=== PATIENT | female | born 1960 | race Caucasian/White ===

== ENCOUNTER 2022-12-26 10:13 | Observation (INO) | payer MEDICAID, SELFPAY ==
[2022-12-26] VITALS (11 sets, daily range): BP systolic 102–135; BP diastolic 42–79; PULSE 84–111; RESP 13–20; TEMP 37–38.2; O2SAT 96–100; BMI 30.7; BMI 31.0
--- NOTE | ~2022-12-26 | CT_ITS ---
EXAMINATION: CTA chest PE protocol DATE: 12/26/2022 11:38 INDICATION: Left-sided chest pain TECHNIQUE: Computed tomography (CT) pulmonary angiogram of the chest was performed with 100 mL Omnipa que-350 intravenous contrast. Additional 3D reconstructions utilizing coronal maximum intensity proje ction (MIP) were performed. Automated exposure control and iterative reconstruction technique were em ployed. The dose-length product was 254.19 mGy-cm. COMPARISON: None FINDINGS: Excellent contrast opacification of the pulmonary arteries. There is however mild to moderate respira tory motion in the bilateral lower lung zones which decreases sensitivity in some of the smaller subs egmental pulmonary arteries. No definitive pulmonary embolism identified. A few subtle tiny contrast opacified vessels extending through a 5.5 x 4.0 x 4.0 cm masslike region of consolidation in the left lower lobe which is concerning for pneumonia. Very small dependently layering left pleural effusion. Mild discoid atelectasis in the bilateral lower lobes. No pulmonary edema or pneumothorax. Heart siz e is normal. Small amount of atherosclerotic coronary artery calcific location. No pericardial effusi on. Thoracic aorta is normal in caliber with no dissection. Mild likely reactive left hilar and media stinal lymphadenopathy. Sized upper abdomen is unremarkable. Mild thoracic spondylosis with chronic a ppearing mild anterior wedging at T6. IMPRESSION: 1. No pulmonary embolism. Sensitivity decreased in some of the smaller subsegmental pulmonary arterie s at the lung bases due to some respiratory motion. 2. 5.5 x 4.0 x 4.0 cm masslike region of consolidation the left lower lobe, most likely pneumonia how ever would recommend follow-up chest radiograph a few weeks following clinical improvement to documen t resolution. 3. Very small left pleural effusion. 4. Likely reactive mild left hilar and mediastinal lymphadenopathy. Reviewed, dictated and finalized at location A. IMPRESSION: 1. No pulmonary embolism. Sensitivity decreased in some of the smaller subsegme ntal pulmonary arteries at the lung bases due to some respiratory motion. 2. 5.5 x 4.0 x 4.0 cm masslike region of consolidation the left lower lobe, mos t likely pneumonia however would recommend follow-up chest radiograph a few wee ks following clinical improvement to document resolution. 3. Very small left pleural effusion. 4. Likely reactive mild left hilar and mediastinal lymphadenopathy.
--- NOTE | 2022-12-26 10:35 | ECG_ITS ---
Measurements Intervals [place] Rate: 105 P: 55 MA: 145 QRS: 32 QRSD: 83 T: 48 QT: 317 QTc: 419 Interpretive Statements SINUS TACHYCARDIA BORDERLINE ECG NO PREVIOUS ECG AVAILABLE FOR COMPARISON Electronically Signed On 12-26-2022 17:02:38 CDT by Darin Cosme M.D.
[2022-12-26 11:11] LABS: Basophils Absolute Auto 0.1 K/mm3 (0.0-0.1); Basophils Percent Auto 0.3 % (0.2-1.2); Eosinophils Percent Auto 0.2 % (0-4.4); Hematocrit 34.9 % (37.0-47.0); Hemoglobin 11.9 g/dL (12.0-15.0); Immature Granulocyte Absolute 0.17 K/mm3 (0.00-0.031); Immature Granulocyte Percent A 0.9 % (0-0.5); Lymphocytes Absolute Auto 1.43 K/mm3 (0.9-3.2); Lymphocytes Percent Auto 7.8 % (18.3-44.2); Mean Corpuscular HGB Conc 34.1 g/dl (32-36); Mean Corpuscular Hemoglobin 31.3 pg (26-34); Mean Corpuscular Volume 91.8 fl (80-100); Mean Platelet Volume 9.6 fl (7.4-10.4); Monocytes Absolute Auto 1.3 K/mm3 (0.1-0.6); Monocytes Percent Auto 7.2 % (2.6-8.5); Neutrophils Absolute Auto 15.3 K/mm3 (1.3-6.7); Neutrophils Percent Auto 83.6 % (45.5-73.1); Platelet Count Result 385 k/mm3 (150-375); Red Cell Distribution Width 12.9 % (11.5-14.5); White Blood Count 18.3 K/mm3 (4.5-10.0)
[2022-12-26 11:20] LABS: Alanine Aminotransferase 16 U/L (6-35); Albumin Level 4.2 g/dL (3.5-5.1); Alkaline Phosphatase 109 U/L (38-126); Anion Gap 9 mmol/L (8-16); Aspartate Amino Transferase 24 U/L (14-36); Bilirubin,Total 0.5 mg/dL (0.2-1.3); Blood Urea Nitrogen 15 mg/dL (7-17); Calcium 9.2 mg/dL (8.4-10.2); Carbon Dioxide 22 mmol/L (22-30); Chloride 104 mmol/L (98-107); Estimated Glomerular Filt Rate > 60; Glucose 105 mg/dL (65-110); Potassium 3.5 mmol/L (3.4-5.0); Sodium 135 mmol/L (137-145)
[2022-12-26] MEDS: MORPHINE SULFATE (*CRX) 4 MG/ML INJ IV PUSH ×2 (11:20→16:03)
--- NOTE | 2022-12-26 11:23 | PC.NURSE ---
pt taken to CT at this time
[2022-12-26 11:25] LABS: INR 1.1; Prothrombin Time 15.1 Seconds (11.1-14.7)
[2022-12-26 11:26] LABS: Partial Thromboplastin Time 29.9 SECONDS (22.3-36.8)
[2022-12-26 11:32] LABS: Troponin I < 0.012 ng/mL (0.000-0.034)
[2022-12-26 12:50] LABS: Lactic Acid Reflex 0.7 mmol/L (0.7-2.0)
--- NOTE | 2022-12-26 13:04 | ED.GENADULT ---
HPI - General Adult General Chief complaint: Chest Pain Stated complaint: left side pain Time Seen by Provider: 12/26/22 10:50 History of Present Illness HPI narrative: Patient is a 62-year-old female who presents ER with left-sided chest pain. Worsening over last 3 days. Worse with deep breath. No hemoptysis. Reports night sweats. No documented fever. No known sick contacts. No history of heart disease or PE. Related Data Home Medications Medication Instructions Recorded Confirmed [place] 3 Fish Oil 1 cap BYMOUTH DAILY 12/26/22 12/26/22 aripiprazole 5 mg tablet 5 mg PO DAILY 12/26/22 12/26/22 cyanocobalamin (vitamin B-12) 1,000 mcg IM MONTHLY 12/26/22 12/26/22 1,000 mcg/mL injection solution hydrochlorothiazide 12.5 mg tablet 12.5 mg PO DAILY 12/26/22 12/26/22 losartan 50 mg tablet 50 mg PO BID 12/26/22 12/26/22 propranolol 20 mg tablet 20 mg PO BID 12/26/22 12/26/22 simvastatin 20 mg tablet 20 mg PO HS 12/26/22 12/26/22 Allergies Allergy/AdvReac Type Severity Reaction Status Date / Time Sulfa (Sulfonamide Allergy Hives Verified 12/26/22 16:28 Antibiotics) topiramate AdvReac Hallucinati Verified 12/26/22 16:28 ng Review of Systems Review of Systems: All systems reviewed & are unremarkable except as noted in HPI and below Constitutional: Constitutional: Denies chills, Denies fatigue and Denies fever(s) Comments: Night sweats ENT: Denies nasal congestion and Denies sore throat Cardiovascular: Cardiovascular: Reports chest pain, Denies rapid heart rate and Denies radiating jaw, neck or arm pain Respiratory: Respiratory: Reports cough and Reports dyspnea Gastrointestinal: Gastrointestinal: Denies abdominal pain, Denies nausea and Denies vomiting [facility] Past Medical History Medical History (Updated 12/26/22 @ 19:43 by Goyo Patel MD) Anxiety Hyperlipidemia Hypertension Palpitations Surgical History Surgical History (Updated 12/26/22 @ 17:54 by Mercedes Leon PA-C) History of hysterectomy History of mandibular surgery Pair of under bite. Family History Family History Mother Asthma COPD (chronic obstructive pulmonary disease) Father Lung cancer Sibling Asthma COPD (chronic obstructive pulmonary disease) Social History Social History (Updated 12/26/22 @ 17:56 by Mercedes Leon PA-C) Social History: Surrogate medical decision maker: Juno Leavitt, spouse. Code status: Full code. Smoking status: Never smoker Alcohol intake: former Substance use: never Lack of Transportation: No Lack of Food: Never True Current Housing: I Have Housing Concerned About Future Housing: No Difficulty Paying Gas/Electric Bills: No Difficulty Paying for Meds: No Currently Unemployed: No Education: High School Diploma/GED Difficulty w/ Childcare or Family Care: No Spiritual care concerns: Yes (jew) Exam Narrative: GENERAL: Well-appearing, well-nourished, and in no acute distress. HEAD: Normocephalic, atraumatic. ENT: Mucous membranes moist. CHEST: Clear to auscultation. No respiratory distress. HEART: Tachycardic and regular. Normal peripheral pulses. ABDOMEN: Soft, nontender, nondistended. EXTREMITIES: Normal range of motion. No edema. SKIN: Warm, dry, no rash. NEURO: NAlert and oriented x3. PSYCH: Normal mood and affect. Course Course Emergency Course: Patient more comfortable after IV pain medication. Informed of imaging and lab results. Recommend observation for IV antibiotics given significant size of masslike pneumonia and elevated white blood cell count. Patient verbalized understanding of this. Excepted by hospitalist. Vital Signs Vital signs: Vital Signs Temperature 98.6 F 12/26/22 10:31 Pulse Rate 111 H 12/26/22 10:31 Respiratory Rate 20 12/26/22 10:31 Blood Pressure 131/79 12/26/22 10:31 Pulse Oximetry 100 12/26/22 10:31 Oxy
[2022-12-26] MEDS: AZITHROMYCIN 500 MG/NS 250 ML 500 MG/250 ML BAG 250 MG IVPB (14:19)
[2022-12-26 14:25] LABS: Troponin I < 0.012 ng/mL (0.000-0.034)
[2022-12-26 15:20] LABS: Influenza A QL RT-PCR Negative (Negative); Influenza B QL RT-PCR Negative (Negative); SARS-CoV-2 RNA PCR Negative (Negative)
[2022-12-26] MEDS: ACETAMINOPHEN 325 MG TABLET 650 MG PO (16:02)
--- NOTE | 2022-12-26 16:17 | ADMGEN ---
This patient, Eugenia Leavitt, was admitted to [facility] Surg Room 312-01. Patient/family oriented to hospital policies and general routines including ID bracelet, bed and alarms, visiting hours, pain management, procedures, bathroom and other care routines, personal items, smoking policy, room service/diet, and visiting hours. Information on how to activate the Rapid Response Team has been discussed. Patient/Family are encouraged to report perceived risks to care and to ask questions if they do not understand what they are told or what they should do. Report from Elza in ER.
[2022-12-26 17:31] LABS: Troponin I < 0.012 ng/mL (0.000-0.034)
--- NOTE | 2022-12-26 17:52 | PM.IMHP ---
H&P: HPI History of Present Illness Date/Time: 12/26/22 15:30 Chief Complaint: Left chest pain and shortness of breath. Narrative: This is a pleasant 62-year-old female with hypertension, hyperlipidemia, palpitations, and anxiety who presented to the emergency department via vehicle for evaluation of left chest pain shortness a breath. The patient provides the following history. She is from [place] and traveled to the area 2 weeks ago to help her brother pack for an upcoming move. The last couple of days she started to feel poorly with fatigue, nonproductive cough, cold chills, sweats, and decreased appetite. Yesterday she started to feel short of breath and reports left-sided chest pain radiating through to the back. She denies headache, sore throat, exertional chest pain, vomiting, and diarrhea. She denies sick contacts. In the ED: She had a low-grade temperature in the ED up to 100.7? F. Blood pressures have been stable since arrival. SpO2 has been in the upper 90s on room air. WBC count was 18.3 and the remainder of her labs were pretty unremarkable. Chest CTA showed no evidence of pulmonary embolism though sensitivity was a bit decreased due to respiratory motion. A 5.5 x 4.0 x 4.0 cm masslike region of consolidation was noted in the left lower lobe which is likely pneumonia. A small left pleural effusion and reactive mild left hilar and mediastinal adenopathy were also noted. She was given 500 mg IV Zithromax an and 1 g IV ceftriaxone and she is being admitted in this setting for further treatment of pneumonia. Review of Systems Review of Systems: Twelve systems were reviewed and are negative except for as per HPI. [facility]LY [facility] Past Medical History Medical History Anxiety Hyperlipidemia Hypertension Palpitations Surgical History Surgical History History of hysterectomy History of mandibular surgery Pair of under bite. Family History Family History Mother Asthma COPD (chronic obstructive pulmonary disease) Father Lung cancer Sibling Asthma COPD (chronic obstructive pulmonary disease) Social History Social History Social History: Surrogate medical decision maker: Juno Leavitt, spouse. Code status: Full code. Smoking status: Never smoker Alcohol intake: former Substance use: never Lack of Transportation: No Lack of Food: Never True Current Housing: I Have Housing Concerned About Future Housing: No Difficulty Paying Gas/Electric Bills: No Difficulty Paying for Meds: No Currently Unemployed: No Education: High School Diploma/GED Difficulty w/ Childcare or Family Care: No Spiritual care concerns: Yes (samaritan) Meds Home Medications and Allergies Home Medications Medication Instructions Recorded Confirmed Type [place] 3 Fish Oil 1 cap BYMOUTH DAILY 12/26/22 12/26/22 History aripiprazole 5 mg tablet 5 mg PO DAILY 12/26/22 12/26/22 History cyanocobalamin (vitamin B-12) 1,000 mcg IM MONTHLY 12/26/22 12/26/22 History 1,000 mcg/mL injection solution hydrochlorothiazide 12.5 mg tablet 12.5 mg PO DAILY 12/26/22 12/26/22 History losartan 50 mg tablet 50 mg PO BID 12/26/22 12/26/22 History propranolol 20 mg tablet 20 mg PO BID 12/26/22 12/26/22 History simvastatin 20 mg tablet 20 mg PO HS 12/26/22 12/26/22 History Allergies Allergy/AdvReac Type Severity Reaction Status Date / Time Sulfa (Sulfonamide Allergy Hives Verified 12/26/22 16:28 Antibiotics) topiramate AdvReac Hallucinati Verified 12/26/22 16:28 ng Vital Signs Vital Signs - 24 hr 12/26/22 10:31 12/26/22 10:50 12/26/22 11:02 Temperature 98.6 F Pulse Rate 111 H 95 93 Respiratory Rate 20 20 Blood Pressure 131/79 133/68 Pulse Oximetry 100 100 Oxygen Delivery Room A
[2022-12-26] MEDS: SIMVASTATIN 20 MG TABLET PO (20:58)
[2022-12-26] MEDS: LOSARTAN POTASSIUM 50 MG TABLET PO (20:58)
[2022-12-26] MEDS: HYDROcodone/acetaminophen (*CRX) 5-325 MG TABLET 1 TAB PO (20:58)
[2022-12-27] VITALS (9 sets, daily range): BP systolic 98–130; BP diastolic 40–53; PULSE 73–87; RESP 13–18; TEMP 35.8–37.4; O2SAT 93–98
[2022-12-27] MEDS: HYDROcodone/acetaminophen (*CRX) 5-325 MG TABLET 1 TAB PO ×6 (01:34→21:04)
[2022-12-27 07:09] LABS: Hematocrit 31.6 % (37.0-47.0); Hemoglobin 10.2 g/dL (12.0-15.0); Mean Corpuscular HGB Conc 32.3 g/dl (32-36); Mean Corpuscular Hemoglobin 29.8 pg (26-34); Mean Corpuscular Volume 92.4 fl (80-100); Mean Platelet Volume 9.4 fl (7.4-10.4); Platelet Count Result 355 k/mm3 (150-375); Red Blood Count 3.42 M/mm3 (4.2-5.4); Red Cell Distribution Width 12.9 % (11.5-14.5); White Blood Count 13.2 K/mm3 (4.5-10.0)
[2022-12-27 07:25] LABS: Anion Gap 7 mmol/L (8-16); Blood Urea Nitrogen 13 mg/dL (7-17); Calcium 8.9 mg/dL (8.4-10.2); Carbon Dioxide 24 mmol/L (22-30); Chloride 104 mmol/L (98-107); Estimated Glomerular Filt Rate > 60; Glucose 96 mg/dL (65-110); Magnesium 2.1 mg/dL (1.6-2.3); Potassium 3.7 mmol/L (3.4-5.0); Sodium 135 mmol/L (137-145)
[2022-12-27] MEDS: hydroCHLOROthiazide 12.5 MG CAPSULE PO (08:14)
[2022-12-27] MEDS: PROPRANOLOL HCL 20 MG TABLET PO ×2 (08:14→16:27)
[2022-12-27] MEDS: ENOXAPARIN 40 MG/0.4 ML SYRINGE SUB-Q (08:14)
[2022-12-27] MEDS: LOSARTAN POTASSIUM 50 MG TABLET PO ×2 (08:15→21:05)
[2022-12-27] MEDS: OMEGA 3 POLYUNSAT FATTY ACIDS 1 GM CAP BY MOUTH (08:15)
[2022-12-27] MEDS: ARIPiprazole 5 MG TABLET PO (08:15)
--- NOTE | 2022-12-27 10:17 | PM.IMPN ---
Progress Note: A&P Assessment and Plan (1) Pneumonia: Code(s): J18.9 - Pneumonia, unspecified organism Status: Acute Assessment and Plan: The patient presents with SOB and pleuritic CP. She had low grade fever and elevated WBC to 18K. lactic acid level normal. CTA chest showing no PE but with a 5.5 x 4.0 x 4.0 cm masslike region of consolidation left lower lobe BCx NGTD Started on azithromycin and ceftriaxone. WBC coming down. Clinically better. Urine Ag pending. May develop a parapneumonic effusion. Monitor for development of symptomos of empyema. Continue IV abx. Follow up on cultures. Bronchodilators available as needed. Add cornet. Check for MRSA (2) Sepsis: Code(s): A41.9 - Sepsis, unspecified organism Status: Acute Assessment and Plan: Sepsis present on admission with fever, elevated WBC and tachycardia. Related to PNA. As above (3) Hypertension: Code(s): I10 - Essential (primary) hypertension Status: Acute Assessment and Plan: Patient's blood pressure was reviewed on 12/27 Blood pressure remains well controlled. Will continue to monitor (4) Anxiety: Code(s): F41.9 - Anxiety disorder, unspecified Status: Acute Assessment and Plan: Mood stable. Continue current medications. (5) Palpitations: Code(s): R00.2 - Palpitations Status: Acute Assessment and Plan: stable. Continue propranolol (6) Hyperlipidemia: Code(s): E78.5 - Hyperlipidemia, unspecified Status: Acute Assessment and Plan: LFTs normal. Continue simvastatin Plan DVT prophylaxis - Lovenox Code status - full Subjective Date/time seen: 12/27/22 10:17 Interval history: 62yo female with anxiety, HLD and HTN here for left sided chest pain and SOB. Patient feels better today. No fever or chills overnight. Still has the left lower chest pain that radiates to the flank and back but this is improved. Pain is pleuritic. She has a dry cough. She is a lifelong nonsmoker. She was exposed to secondhand smoke. Exam Narrative: Tm 100.7 96.9 112/53 83 16 93% ra Gen - NARD Chest - decreased BS in left base with mild splinting. nml RR CV - RRR S1/S2 Abd - Soft, NT/ND, Positive BS Ext - No pedal edema Psych - Nml mood and affect Skin - Warm and dry Objective Data Vital Signs Vital Signs: Vital Signs - 24 hr 12/26/22 10:31 12/26/22 10:50 12/26/22 11:02 Temperature 98.6 F Pulse Rate 111 H 95 93 Respiratory Rate 20 20 Blood Pressure 131/79 133/68 Pulse Oximetry 100 100 Oxygen Delivery Room Air Room Air 12/26/22 11:02 12/26/22 11:02 12/26/22 14:19 Temperature Pulse Rate 94 91 Respiratory Rate 18 18 Blood Pressure 134/51 L 102/58 L Pulse Oximetry 98 99 100 Oxygen Delivery Room Air 12/26/22 14:18 12/26/22 16:02 12/26/22 16:00 Temperature 100.7 F H 100.7 F H Pulse Rate 87 89 Respiratory Rate 19 18 Blood Pressure 113/72 115/74 Pulse Oximetry 100 100 Oxygen Delivery 12/26/22 17:02 12/26/22 15:45 12/26/22 20:00 Temperature 99.5 F 98.7 F Pulse Rate 92 Respiratory Rate 13 Blood Pressure 135/45 L Pulse Oximetry 100 98 Oxygen Delivery Room Air 12/26/22 20:00 12/26/22 23:33 12/27/22 04:00 Temperature 98.6 F 97.3 F L Pulse Rate 92 84 85 Respiratory Rate 13 13 13 Blood Pressure 108/42 L 130/53 L Pulse Oximetry 98 96 95 Oxygen Delivery Room Air 12/27/22 08:14 12/27/22 08:00 12/27/22 09:11 Temperature 96.9 F L Pulse Rate 83 87 Respiratory Rate 16 Blood Pressure 112/53 L Pulse Oximetry 96 93 Oxygen Delivery Room Air 12/27/22 08:00 Temperature Pulse Rate Respiratory Rate Blood Pressure Pulse Oximetry 95 Oxygen Delivery Room Air Intake/Output Intake/Output: Intake & Output 12/24/22 12/25/22 12/26/22 12/27/22 23:59 23:59 23:59 23:59 Intake Total 500 990 Output Total 900 Balance 500 90
[2022-12-27] MEDS: AZITHROMYCIN 500 MG/NS 250 ML 500 MG/250 ML BAG 250 MG IVPB (13:37)
[2022-12-27] MEDS: SIMVASTATIN 20 MG TABLET PO (21:04)
[2022-12-28] VITALS (8 sets, daily range): BP systolic 105–133; BP diastolic 45–60; PULSE 72–83; RESP 14–19; TEMP 35.9–37.7; O2SAT 93–95
[2022-12-28] MEDS: HYDROcodone/acetaminophen (*CRX) 5-325 MG TABLET 1 TAB PO ×4 (01:26→20:42)
[2022-12-28 06:05] LABS: Basophils Absolute Auto 0.1 K/mm3 (0.0-0.1); Basophils Percent Auto 0.4 % (0.2-1.2); Eosinophils Absolute Auto 0.1 K/mm3 (0-0.3); Eosinophils Percent Auto 0.9 % (0-4.4); Hemoglobin 10.2 g/dL (12.0-15.0); Immature Granulocyte Absolute 0.09 K/mm3 (0.00-0.031); Immature Granulocyte Percent A 0.8 % (0-0.5); Lymphocytes Absolute Auto 2.05 K/mm3 (0.9-3.2); Lymphocytes Percent Auto 18.2 % (18.3-44.2); Mean Corpuscular HGB Conc 30.9 g/dl (32-36); Mean Corpuscular Hemoglobin 29.1 pg (26-34); Mean Platelet Volume 10.3 fl (7.4-10.4); Monocytes Absolute Auto 1.1 K/mm3 (0.1-0.6); Monocytes Percent Auto 9.7 % (2.6-8.5); Neutrophils Absolute Auto 7.9 K/mm3 (1.3-6.7); Platelet Count Result 347 k/mm3 (150-375); Red Blood Count 3.51 M/mm3 (4.2-5.4); Red Cell Distribution Width 13.1 % (11.5-14.5); White Blood Count 11.3 K/mm3 (4.5-10.0)
[2022-12-28 06:21] LABS: Anion Gap 8 mmol/L (8-16); Blood Urea Nitrogen 14 mg/dL (7-17); Carbon Dioxide 22 mmol/L (22-30); Chloride 105 mmol/L (98-107); Estimated Glomerular Filt Rate > 60; Glucose 102 mg/dL (65-110); Potassium 3.6 mmol/L (3.4-5.0); Sodium 135 mmol/L (137-145)
[2022-12-28] MEDS: ARIPiprazole 5 MG TABLET PO (09:50)
[2022-12-28] MEDS: ENOXAPARIN 40 MG/0.4 ML SYRINGE SUB-Q (09:51)
[2022-12-28] MEDS: OMEGA 3 POLYUNSAT FATTY ACIDS 1 GM CAP BY MOUTH (09:59)
[2022-12-28] MEDS: hydroCHLOROthiazide 12.5 MG CAPSULE PO (09:59)
[2022-12-28] MEDS: LOSARTAN POTASSIUM 50 MG TABLET PO ×2 (09:59→20:43)
[2022-12-28] MEDS: PROPRANOLOL HCL 20 MG TABLET PO ×2 (09:59→17:15)
--- NOTE | 2022-12-28 13:33 | PM.IMPN ---
Progress Note: A&P Assessment and Plan (1) Pneumonia: Code(s): J18.9 - Pneumonia, unspecified organism Status: Acute Assessment and Plan: The patient presents with SOB and pleuritic CP. She had low grade fever and elevated WBC to 18K. lactic acid level normal. CTA chest showing no PE but with a 5.5 x 4.0 x 4.0 cm masslike region of consolidation left lower lobe Started on azithromycin and ceftriaxone. WBC coming down. Clinically better. Urine Ag pending. May develop a parapneumonic effusion. Monitor for development of symptomos of empyema. Continue IV abx. Follow up on cultures. Bronchodilators available as needed. Add cornet. Check for MRSA Blood cultures NGTD, MRSA pending (2) Sepsis: Code(s): A41.9 - Sepsis, unspecified organism Status: Acute Assessment and Plan: Sepsis present on admission with fever, elevated WBC and tachycardia. Related to PNA. As above (3) Hypertension: Code(s): I10 - Essential (primary) hypertension Status: Acute Assessment and Plan: Patient's blood pressure was reviewed on 12/28 Blood pressure remains well controlled. Will continue to monitor (4) Anxiety: Code(s): F41.9 - Anxiety disorder, unspecified Status: Acute Assessment and Plan: Mood stable. Continue current medications. (5) Palpitations: Code(s): R00.2 - Palpitations Status: Acute Assessment and Plan: stable. Continue propranolol (6) Hyperlipidemia: Code(s): E78.5 - Hyperlipidemia, unspecified Status: Acute Assessment and Plan: LFTs normal. Continue simvastatin Plan DVT prophylaxis - Lovenox Code status - full Subjective Date/time seen: 12/28/22 13:33 Interval history: 62yo female with anxiety, HLD and HTN here for left sided chest pain and SOB. Patient continues to feel little better each day. She still feels quite weak, however. No overnight events noted. No chest pain or shortness of breath. No nausea, vomiting or diarrhea. No fevers or chills. Review of Systems Review of Systems: 12 point review of systems was assessed and was negative except as noted in the HPI Exam Narrative: General: No acute distress, alert and oriented per baseline HEENT: Atraumatic, normocephalic, mucous membranes moist CV: Regular rate and rhythm, S1, S2 Lungs: No wheezes, somewhat diminished at bases Abdomen: Soft, nontender, nondistended Extremities: Normal to inspection Skin: No rashes noted, no lesions or wounds seen Psych: Euthymic, normal affect Objective Data Vital Signs Vital Signs: Vital Signs - 24 hr 12/27/22 16:00 12/27/22 16:27 12/27/22 20:00 Temperature 99.3 F Pulse Rate 79 75 75 Respiratory Rate 18 18 Blood Pressure 103/53 L Pulse Oximetry 95 95 Oxygen Delivery Room Air 12/27/22 20:25 12/28/22 00:00 12/28/22 04:00 Temperature 96.5 F L 96.6 F L 98.2 F Pulse Rate 84 79 74 Respiratory Rate 18 18 18 Blood Pressure 98/45 L 108/60 114/51 L Pulse Oximetry 93 94 93 Oxygen Delivery 12/28/22 09:59 12/28/22 10:15 Temperature 97.4 F L Pulse Rate 79 80 Respiratory Rate 14 Blood Pressure 113/45 L Pulse Oximetry 94 Oxygen Delivery Intake/Output Intake/Output: Intake & Output 12/25/22 12/26/22 12/27/22 12/28/22 23:59 23:59 23:59 23:59 Intake Total 500 2070 170 Output Total 1500 675 Balance 500 570 -505 Meds/Results Medications: Active Medications Generic Name Dose Route Start Last Admin Trade Name Freq PRN Reason Stop Dose Admin Acetaminophen 650 mg 12/26/22 14:18 12/26/22 16:02 Acetaminophen 325 Mg Tablet PO 650 mg Q4H PRN Administration Mild Pain (1-3) or Fever Hydrocodone Bitart/Acetaminophen 1 tab 12/26/22 14:18 12/28/22 05:58 Hydrocodone/Acetaminophen (*Crx) 5-325 Mg Tablet PO 1 tab Q4H PRN Administration Pain Rated 4-6 Aripiprazole 5 mg 12/27/22 09:00 10
[2022-12-28] MEDS: AZITHROMYCIN 500 MG/NS 250 ML 500 MG/250 ML BAG 250 MG IVPB (14:27)
[2022-12-28] MEDS: SIMVASTATIN 20 MG TABLET PO (20:42)
[2022-12-29] MEDS: HYDROcodone/acetaminophen (*CRX) 5-325 MG TABLET 1 TAB PO ×2 (03:26→08:21)
[2022-12-29 06:00] VITALS: BP 102/46; PULSE 68; RESP 15; TEMP 36.1; O2SAT 94
[2022-12-29 08:17] VITALS: PULSE 76
[2022-12-29] MEDS: hydroCHLOROthiazide 12.5 MG CAPSULE PO (08:17)
[2022-12-29] MEDS: OMEGA 3 POLYUNSAT FATTY ACIDS 1 GM CAP BY MOUTH (08:17)
[2022-12-29] MEDS: ARIPiprazole 5 MG TABLET PO (08:17)
[2022-12-29] MEDS: LOSARTAN POTASSIUM 50 MG TABLET PO (08:17)
[2022-12-29] MEDS: PROPRANOLOL HCL 20 MG TABLET PO (08:17)
[2022-12-29] MEDS: ENOXAPARIN 40 MG/0.4 ML SYRINGE SUB-Q (08:18)
--- NOTE | 2022-12-29 11:06 | PM.DS ---
DS: Admitting Diagnosis Discharge Date 12/29/22 Admitting Diagnosis sob DS: Discharge Diagnosis Discharge Diagnosis (1) Pneumonia: Code(s): J18.9 - Pneumonia, unspecified organism Status: Acute Assessment and Plan: The patient presents with SOB and pleuritic CP. She had low grade fever and elevated WBC to 18K. lactic acid level normal. CTA chest showing no PE but with a 5.5 x 4.0 x 4.0 cm masslike region of consolidation left lower lobe Started on azithromycin and ceftriaxone. WBC coming down. Clinically better. Urine Ag pending. May develop a parapneumonic effusion. Monitor for development of symptomos of empyema. Continue IV abx. Follow up on cultures. Bronchodilators available as needed. Add cornet. Check for MRSA Blood cultures NGTD, MRSA pending (2) Sepsis: Code(s): A41.9 - Sepsis, unspecified organism Status: Acute Assessment and Plan: Sepsis present on admission with fever, elevated WBC and tachycardia. Related to PNA. As above (3) Hypertension: Code(s): I10 - Essential (primary) hypertension Status: Acute Assessment and Plan: Patient's blood pressure was reviewed on 12/28 Blood pressure remains well controlled. Will continue to monitor (4) Anxiety: Code(s): F41.9 - Anxiety disorder, unspecified Status: Acute Assessment and Plan: Mood stable. Continue current medications. (5) Palpitations: Code(s): R00.2 - Palpitations Status: Acute Assessment and Plan: stable. Continue propranolol (6) Hyperlipidemia: Code(s): E78.5 - Hyperlipidemia, unspecified Status: Acute Assessment and Plan: LFTs normal. Continue simvastatin Plan DVT prophylaxis - Lovenox Code status - full DS: Summary Hospital Course Hospital Course: 62yo female with anxiety, HLD and HTN here for left sided chest pain and SOB. The patient presents with SOB and pleuritic CP. She had low grade fever and elevated WBC to 18K. lactic acid level normal. CTA chest showing no PE but with a 5.5 x 4.0 x 4.0 cm masslike region of consolidation left lower lobe Started on azithromycin and ceftriaxone. WBC coming down. Clinically better. Urine Ag pending. May develop a parapneumonic effusion. Monitor for development of symptomos of empyema. Continue IV abx. Follow up on cultures. Bronchodilators available as needed. Add cornet. Check for MRSA Blood cultures NGTD, MRSA pending Sepsis present on admission with fever, elevated WBC and tachycardia. Related to PNA. Patient's symptoms resolved and she was discharged in stable condition with close outpatient follow-up please see above and med rec for details. Time Spent with Patient Time attestation: Total time spent providing and/or coordinating discharge services: Exam Narrative: General: No acute distress, alert and oriented per baseline HEENT: Atraumatic, normocephalic, mucous membranes moist CV: Regular rate and rhythm, S1, S2 Lungs: No wheezes, somewhat diminished at bases Abdomen: Soft, nontender, nondistended Extremities: Normal to inspection Skin: No rashes noted, no lesions or wounds seen Psych: Euthymic, normal affect DS: Data Data Completed and Pending Labs on day of discharge: Preliminary micro results at discharge 12/26/22 13:44 Blood Culture - Preliminary Blood 12/26/22 12:36 Blood Culture - Preliminary Blood Discharge Plan Discharge Attending physician on discharge: Sammie Londono Consulting providers: Mercedes Leon; Antelmo Yang; Juanito Robledo Discharging Clinician: Sammie Londono Patient Disposition: Home, Self-Care Activity: as tolerated Diet: as tolerated Patient Instructions: Antibiotic Form, Pneumonia (DC), Shortness of Breath (DC) Stand Alone Forms: General Discharge Information Follow-up/Referrals: PHYSICIAN NOT ON STAFF,NONSTAFF [Primary Care Provider] -
[2022-12-29 14:15] LABS: Mycoplasma IgM Antibody Titer 19 U/mL (<770)
[2022-12-29 14:22] LABS: Pneumococcal Antigen Urine Not Detected (Not Detected)
[2022-12-31] LABS: Legionella pneumophila Ag Ur Not Detected (Not Detected)
== END 2022-12-29 13:35 | disposition home or self-care (01) ==
LOC: ANHED 15:18 → ANH3MEDSUR 19:43
PROVIDERS: Internal Medicine; Physician Assistant; Admitting Provider Internal Medicine; Emergency Provider Emergency Medicine; Visit Provider Student in an Organized Health Care Education/Training Program
DX: J18.9 Pneumonia, unspecified organism (principal); A41.9 Sepsis, unspecified organism; F41.9 Anxiety disorder, unspecified; E78.5 Hyperlipidemia, unspecified; I10 Essential (primary) hypertension; Z20.822 Contact with and (suspected) exposure to COVID-19; D72.829 Elevated white blood cell count, unspecified; J90 Pleural effusion, not elsewhere classified; R63.0 Anorexia; Z68.31 Body mass index [BMI] 31.0-31.9, adult; Z77.22 Contact with and (suspected) exposure to environmental tobacco smoke (acute) (chronic); Z79.899 Other long term (current) drug therapy
CPT/HCPCS: 36415; 71275; 80048; 80053; 83605; 83735; 84484; 85025; 85027; 85610; 85730; 86738; 87040; 87081; 87449; 87636; 87899; 93005; 94667; 96365; 96367; 96372; 96375; 99285; A9270; G0378; J0456; J0696; J1650; J2270; Q9967